=== PATIENT | male | born 1975 | race American Indian/Alaskan Native ===

== ENCOUNTER 2024-12-12 14:15 | Emergency (ER) | payer SELFPAY ==
[2024-12-12 14:45] LABS: BASOPHILS ABSOLUTE AUTO 0.1 K/mm3 (0.0-0.2); BASOPHILS PERCENT AUTO 0.6 % (0.0-1.0); EOSINOPHILS PERCENT AUTO 0.4 % (0.0-6.0); HEMATOCRIT 35.3 % (42.0-52.0); HEMOGLOBIN 11.5 gm/dl (14.0-18.0); IMMATURE GRAN ABSOLUTE AUTO 0.37 K/mm3 (0.00-0.05); IMMATURE GRAN PERCENT AUTO 4.5 % (0.0-0.4); LYMPHOCYTES ABSOLUTE AUTO 1.5 K/mm3 (1.0-4.8); LYMPHOCYTES PERCENT AUTO 18.3 % (24.0-44.0); MEAN CORPUSCULAR HEMOGLOBIN 31.6 pg (28.0-32.0); MEAN CORPUSCULAR HGB CONC 32.6 g/dl (32.0-36.0); MEAN PLATELET VOLUME 10.5 fl (9.4-12.4); MONOCYTES ABSOLUTE AUTO 0.6 K/mm3 (0.0-0.8); MONOCYTES PERCENT AUTO 6.8 % (0.0-8.0); NEUTROPHILS ABSOLUTE AUTO 5.7 K/mm3 (1.8-7.7); NEUTROPHILS PERCENT AUTO 69.4 % (41.0-71.0); PLATELET COUNT,PLT 197 K/mm3 (150-400); RED BLOOD CELL COUNT 3.64 M/mm3 (4.52-5.90); WHITE BLOOD CELL COUNT,WBC 8.23 K/mm3 (3.9-11.3)
[2024-12-12] MEDS: Sodium Chloride 0.9% 1,000 ML IV STA (14:47)
[2024-12-12] MEDS: Sodium Chloride 0.9% 10 ML Syringe FLUSH PRN (14:48)
[2024-12-12] MEDS: Ondansetron 4 MG/2 ML SDV IVPUSH ONE (14:48)
[2024-12-12 15:11] LABS: A/G RATIO 0.6 (1-2); ALBUMIN 2.1 g/dl (3.4-5.0); ANION GAP 12.8 (5-15); BILIRUBIN TOTAL 0.8 mg/dL (0.2-1.0); C-REACTIVE PROTEIN 1.23 mg/dL (<0.30); CALCIUM 7.6 mg/dL (8.5-10.1); EST CRCL DRUG DOSING (CG) 85.61 mL/min; POTASSIUM,K 2.8 mEq/L (3.5-5.1); PROTEIN TOTAL,TP 5.6 g/dl (6.4-8.2)
[2024-12-12] MEDS: Iopamidol 612 MG/ML 100 ML Bottle IVPUSH ONE (15:36)
[2024-12-12] MEDS: Sodium Chloride 0.9% 10 ML Syringe FLUSH ONE (15:37)
[2024-12-12] MEDS: Potassium Chloride 10 MEQ in Premix Bag 1 BAG IV SCH (15:45)
== END 2024-12-12 18:25 ==
LOC: JD.ED 14:15
DX: K31.5 Obstruction of duodenum (principal); C25.0 Malignant neoplasm of head of pancreas
CPT/HCPCS: 36415; 74177; 80053; 83690; 85025; 86140; 87428; 96361; 96365; 96366; 96375; 99285; J2405; J3480; J7030; Q9967

== ENCOUNTER 2025-03-30 10:22 | Emergency (ER) | payer SELFPAY ==
[2025-03-30] MEDS ORDERED: Sodium Chloride 0.9% 10 ML Syringe FLUSH PRN (11:00)
[2025-03-30] MEDS ORDERED: Naloxone 0.4 MG/ML SDV IVPUSH PRN ×2 (11:09→12:48)
[2025-03-30] MEDS: Ondansetron 4 MG/2 ML SDV IVPUSH ONE (11:30)
[2025-03-30] MEDS: fentaNYL 100 MCG/2 ML SDV IVPUSH ONE ×2 (11:30→13:29)
[2025-03-30] MEDS: Sodium Chloride 0.9% 1,000 ML IV SCH ×2 (11:31→14:05)
[2025-03-30 11:40] LABS: BASOPHILS PERCENT AUTO 0.1 % (0.0-1.0); EOSINOPHILS PERCENT AUTO 0.1 % (0.0-6.0); HEMATOCRIT 23.5 % (42.0-52.0); IMMATURE GRAN ABSOLUTE AUTO 0.21 K/mm3 (0.00-0.05); IMMATURE GRAN PERCENT AUTO 2.5 % (0.0-0.4); LYMPHOCYTES ABSOLUTE AUTO 0.5 K/mm3 (1.0-4.8); LYMPHOCYTES PERCENT AUTO 5.4 % (24.0-44.0); MEAN CORPUSCULAR HEMOGLOBIN 28.1 pg (28.0-32.0); MEAN CORPUSCULAR HGB CONC 31.1 g/dl (32.0-36.0); MEAN PLATELET VOLUME 10.4 fl (9.4-12.4); MONOCYTES ABSOLUTE AUTO 0.7 K/mm3 (0.0-0.8); MONOCYTES PERCENT AUTO 8.5 % (0.0-8.0); NEUTROPHILS ABSOLUTE AUTO 7.1 K/mm3 (1.8-7.7); NEUTROPHILS PERCENT AUTO 83.4 % (41.0-71.0); WHITE BLOOD CELL COUNT,WBC 8.47 K/mm3 (3.9-11.3)
[2025-03-30 11:43] LABS: HEMOGLOBIN 7.3 gm/dl (14.0-18.0); MEAN CORPUSCULAR VOLUME 90.4 fl (83.0-99.0); PLATELET COUNT,PLT 274 K/mm3 (150-400)
[2025-03-30] MEDS: Iopamidol 612 MG/ML 100 ML Bottle IVPUSH ONE (11:46)
[2025-03-30] MEDS: Sodium Chloride 0.9% 10 ML Syringe FLUSH ONE (11:47)
[2025-03-30 11:54] LABS: INR 1.22; PROTHROMBIN TIME 12.8 SECONDS (9.7-12.0)
[2025-03-30 11:56] LABS: PTT,PARTIAL THROMBOPLSTIN TIME 31.1 SECONDS (21.7-31.4)
[2025-03-30 12:11] LABS: A/G RATIO 0.4 (1-2); ALANINE AMINOTRANSFERASE,ALT 27 U/L (16-63); ALBUMIN 1.7 g/dl (3.4-5.0); ALKALINE PHOSPHATASE 402 U/L (46-116); ANION GAP 13.1 (5-15); ASPARTATE AMNIOTRANSFERASE,AST 17 U/L (15-37); BILIRUBIN TOTAL 0.7 mg/dL (0.2-1.0); BLOOD UREA NITROGEN,BUN 10 mg/dL (7-18); C-REACTIVE PROTEIN 15.97 mg/dL (<0.30); CALCIUM 7.6 mg/dL (8.5-10.1); CARBON DIOXIDE,CO2 25 mEq/L (21-32); CHLORIDE,CL 102 mEq/L (98-107); EST CRCL DRUG DOSING (CG) 82.65 mL/min; ESTIMATED GFR 93 mL/min (>60); GLUCOSE RANDOM 136 mg/dL (70-99); MAGNESIUM 1.8 mg/dL (1.8-2.4); POTASSIUM,K 4.1 mEq/L (3.5-5.1); PROTEIN TOTAL,TP 5.7 g/dl (6.4-8.2); SODIUM,NA 136 mEq/L (136-145)
[2025-03-30 12:15] LABS: LACTIC ACID 2.2 mmol/L (0.4-2.0); LIPASE < 6 U/L (16-77); TROPONIN I HIGH SENSITIVITY < 4 pg/mL (<=76)
[2025-03-30] MEDS ORDERED: Heparin Sodium 5,000 Units/ML Vial IVPUSH ONE (13:03)
[2025-03-30] MEDS: Heparin Sodium 5,000 Units/ML Vial IVPUSH ONE (13:27)
[2025-03-30] MEDS: Heparin Sodium/D5W 250 ML IV SCH (13:27)
[2025-03-30] MEDS: Piperacillin/Tazobactam 4.5 GM in Sodium Chloride 0.9% 100 ML IV ONE (14:05)
== END 2025-03-30 14:20 ==
LOC: JD.ED 10:22
DX: K55.9 Vascular disorder of intestine, unspecified (principal); K63.89 Other specified diseases of intestine; C25.0 Malignant neoplasm of head of pancreas; C22.9 Malignant neoplasm of liver, not specified as primary or secondary; Z79.899 Other long term (current) drug therapy
CPT/HCPCS: 36415; 36556; 74177; 74177-26; 80053; 83605; 83690; 83735; 84484; 85025; 85610; 85730; 86140; 86850; 86900; 86901; 87040; 93005; 96361; 96365; 96375; 96376; 99285; 99285-25; J1644; J2405; J2543; J3010; J7030; Q9967